=== PATIENT | male | born 1985 ===

== ENCOUNTER 2021-11-09 14:03 | Emergency (ER) | payer BC, MEDICAID ==
[~2021-11-09] VITALS: Ht 175.3 cm; Wt 87.0 kg
[~2021-11-09 14:03] MED LIST: FAMO20TA44 PO; OMEP20CA15 PO; SUCR1ORA2 PO
[2021-11-09 14:09] VITALS: BP 114/62
== END 2021-11-10 01:00 | disposition left against medical advice (07) ==
LOC: ER 14:03
DX: R20.0 Anesthesia of skin (principal); Z53.21 Procedure and treatment not carried out due to patient leaving prior to being seen by health care provider
CPT/HCPCS: 93005